=== PATIENT | male | born 1980 | race Caucasian/White ===

== ENCOUNTER 2017-03-08 13:29 | Emergency (ER) | payer OTHER ==
[~2017-03-08 13:29] MED LIST: CAG500 PO; COG1 PO; D3 VITAMIN400 IU/ML PO; DEP250 PO; FLA500 PO; KEF500 PO; LEVOTHY PO; MEG40 PO; PHEL PO; PRE30 PO; REG5 PO; RIS1 PO; SERO100 PO; TRA50 PO
[2017-03-08 15:40] VITALS: BP 113/65
== END 2017-03-08 15:40 | disposition home or self-care (01) ==
LOC: ED 13:29
DX: M25.571 Pain in right ankle and joints of right foot (principal); S93.401A Sprain of unspecified ligament of right ankle, initial encounter; W18.30XA Fall on same level, unspecified, initial encounter; Y93.89 Activity, other specified; Y92.89 Other specified places as the place of occurrence of the external cause; Y99.8 Other external cause status
CPT/HCPCS: Q0092

== ENCOUNTER 2017-08-15 10:42 | Emergency (ER) | payer OTHER ==
[2017-08-15 12:48] LABS: microscopic required? NO
[2017-08-15 12:54] LABS: BASOPHIL % 1.1 % (0-2); CALCIUM 9.2 mg/dL (8.5-10.1); CARBON DIOXIDE 29.7 mmol/L (21-32); CHLORIDE SERUM 104 mmol/L (98-107); GFR1 > 60 mL/min; GLUCOSE SERUM 86 mg/dL (74-106); SODIUM SERUM 140 mmol/L (136-145)
[2017-08-15 12:57] LABS: urine erythrocyte NEGATIVE (NEGATIVE)
[2017-08-15 12:59] LABS: ALBUMIN 2.6 g/dL (3.4-5.0); ALKALINE PHOSPHATASE 76 U/L (46-116); ALT/SGPT 28 U/L (16-63); AST/SGOT 22 U/L (15-37); BILIRUBIN TOTAL 0.15 mg/dL (0.20-1.00); LIPASE 74 IU/L (73-393); TOTAL PROTEIN, SERUM 8.4 g/dL (6.4-8.2)
[2017-08-15 13:01] LABS: PLATELET COUNT 524 x10^3mcL (130-400); RED CELL DISTRIBUTION WIDTH 19.3 % (11.5-14.5)
[2017-08-15 14:48] VITALS: BP 110/60
== END 2017-08-15 14:48 | disposition home or self-care (01) ==
LOC: ED 10:42
PROVIDERS: Emergency Medicine
DX: R10.31 Right lower quadrant pain (principal); R11.0 Nausea; E07.9 Disorder of thyroid, unspecified; Z90.89 Acquired absence of other organs
CPT/HCPCS: J1885; J7030

== ENCOUNTER 2018-02-21 09:34 | Emergency (ER) | payer OTHER ==
[~2018-02-21] VITALS: Ht 154.9 cm; Wt 55.3 kg
[2018-02-21 09:45] VITALS: BP 104/63; Ht 154.9 cm; Wt 55.3 kg
== END 2018-02-21 11:00 | disposition home or self-care (01) ==
LOC: ED 09:34
DX: S60.222A Contusion of left hand, initial encounter (principal); Z90.49 Acquired absence of other specified parts of digestive tract; W22.8XXA Striking against or struck by other objects, initial encounter; Y93.89 Activity, other specified; Y92.89 Other specified places as the place of occurrence of the external cause; Y99.8 Other external cause status

== ENCOUNTER → 2018-03-12 | Outpatient (CLI) | payer OTHER | END | disposition home or self-care (01) | LOC: CT 09:00 | DX: R10.9 Unspecified abdominal pain (principal); R63.4 Abnormal weight loss; R19.7 Diarrhea, unspecified | CPT/HCPCS: Q9967 ==

== ENCOUNTER 2018-03-13 08:11 | Day surgery (SDC) | payer OTHER ==
[~2018-03-13] VITALS: Ht 172.7 cm; Wt 58.0 kg
[2018-03-13 08:47] VITALS: BP 97/55
[2018-03-13 10:59] VITALS: BP 108/55
== END 2018-03-13 11:10 | disposition home or self-care (01) ==
LOC: GI 08:11 → OR 10:30 → DS 10:30 → GI 10:30
PROVIDERS: Internal Medicine Gastroenterology
PROC: 0DB98ZX Excision of Duodenum, Via Natural or Artificial Opening Endoscopic, Diagnostic (ICD-10-PCS; principal; 2018-03-13 10:30)
PROC: 0DB68ZX Excision of Stomach, Via Natural or Artificial Opening Endoscopic, Diagnostic (ICD-10-PCS; 2018-03-13 10:30)
DX: K90.0 Celiac disease (principal); Q90.9 Down syndrome, unspecified
CPT/HCPCS: 43235; J1200; J1610; J2250; J2310; J3010; J3490

== ENCOUNTER 2019-06-14 20:42 | Emergency (ER) | payer OTHER ==
[~2019-06-14] VITALS: Ht 147.3 cm; Wt 61.2 kg
[2019-06-14 21:36] VITALS: BP 107/68
== END 2019-06-14 21:36 | disposition home or self-care (01) ==
LOC: ED 20:42
DX: R05 Cough (principal); Z13.89 Encounter for screening for other disorder; K08.89 Other specified disorders of teeth and supporting structures; Z90.89 Acquired absence of other organs

== ENCOUNTER 2019-07-17 11:57 | Emergency (ER) | payer OTHER ==
[~2019-07-17] VITALS: Ht 142.2 cm; Wt 59.4 kg
[2019-07-17 14:26] LABS: BASOPHIL % 2.1 % (0-2); PLATELET COUNT 476 x10^3mcL (130-400); RED CELL DISTRIBUTION WIDTH 16.4 % (11.5-14.5)
[2019-07-17 14:54] LABS: CALCIUM 8.6 mg/dL (8.5-10.1); CARBON DIOXIDE 29.7 mmol/L (21-32); CHLORIDE SERUM 100 mmol/L (98-107); CREATININE SERUM 0.9 mg/dL (0.7-1.3); GFR1 > 60 mL/min; GLUCOSE SERUM 88 mg/dL (74-106); POTASSIUM SERUM 4.6 mmol/L (3.5-5.1); SODIUM SERUM 137 mmol/L (136-145)
[2019-07-17 14:58] LABS: ALKALINE PHOSPHATASE 111 U/L (46-116); ALT/SGPT 20 U/L (16-63); AST/SGOT 33 U/L (15-37); BILIRUBIN TOTAL 0.4 mg/dL (0.20-1.00); LIPASE 29 IU/L (73-393)
[2019-07-17 14:59] LABS: ALBUMIN 2.7 g/dL (3.4-5.0); TOTAL PROTEIN, SERUM 9.1 g/dL (6.4-8.2)
[2019-07-17 15:51] VITALS: BP 114/57
== END 2019-07-17 15:51 | disposition home or self-care (01) ==
LOC: ED 11:57
PROVIDERS: Emergency Medicine
DX: R19.7 Diarrhea, unspecified (principal); R10.13 Epigastric pain; Z90.89 Acquired absence of other organs
CPT/HCPCS: 36415